=== PATIENT | male | born 2000 | race African-American/Black ===

== ENCOUNTER 2019-06-24 20:49 | Emergency (ER) | payer OTHER ==
[2019-06-24] MEDS ORDERED: Acetaminophen TAB* 325 MG PO ONE (21:09)
[2019-06-24 21:19] LABS: Influenza B Molecular POSITIVE (Negative)
--- NOTE | 2019-06-24 21:25 | UC ---
FLU HPI - HPI Summary HPI Summary: 18-year-old male presenting with father for sore throat, nasal congestion, dry cough, body aches 2 days. Patient notes fever began today. Also notes decreased appetite. Patient states concern for the flu. Denies shortness of breath and difficulty breathing. Denies cough. Denies nausea or vomiting. Denies taking anything for fever or pain relief. - History of Current Complaint Stated Complaint: FLU LIKE SYMPTOMS Hx Obtained From: Patient Pain Intensity: 0 - Allergy/Home Medications Allergies/Adverse Reactions: Allergies Allergy/AdvReac Type Severity Reaction Status Date / Time No Known Allergies Allergy Verified 06/24/19 21:00 PMH/Surg Hx/FS Hx/Imm Hx Previously Healthy: Yes - Surgical History Surgical History: None - Family History Known Family History: Positive: Non-Contributory - Social History Alcohol Use: None Substance Use Type: None Smoking Status (MU): Never Smoked Tobacco Review of Systems All Other Systems Reviewed And Are Negative: Yes Constitutional: Positive: Fever, Chills, Fatigue ENT: Positive: Sore Throat, Sinus Congestion Respiratory: Positive: Cough. Negative: Shortness Of Breath Cardiovascular: Positive: Negative Gastrointestinal: Positive: Negative Musculoskeletal: Positive: Myalgia Neurological: Positive: Negative Physical Exam - Summary Physical Exam Summary: Vital Signs Reviewed: Yes A+Ox3, no distress, ill-appearing Eyes: Conjunctiva Clear ENT: Hearing grossly normal, TM x 2 clear, moist, uvula midline, no exudate, + pharyngeal erythema Neck: Positive: Supple Respiratory: Positive: No respiratory distress, No accessory muscle use + CTA throughout no w/r Cardiovascular: RRR nl s1, s2 no m/r Musculoskeletal Exam: GONZALEZ x 4 without difficulty Neurological: Positive: Alert Psychological: Positive: age appropriate behavior Skin: Positive: no rash, no ecchymosis Vital Signs: Initial Vital Signs Temp 103.5 F 06/24/19 21:01 Pulse 95 06/24/19 21:01 Resp 18 06/24/19 21:01 BP 138/94 06/24/19 21:01 Pulse Ox 100 06/24/19 21:01 Lab Results 06/24/19 Range/Units 21:16 Influenza B (Rapid) Positive A (Negative) Flu Course/Dx - Course Course Of Treatment: Positive rapid flu B. Educated patient for about influenza and Tamiflu. When given the option, the degree that it would be beneficial to begin Tamiflu treatment. I provided patient with first dose here and sent prescription for the rest. Patient also received Tylenol and ibuprofen for fever relief while here. Instructed to go to ED with any new or worsening symptoms. Patient and father voiced understanding and agreed with treatment plan. - Differential Dx/Diagnosis Provider Diagnosis: Influenza B Discharge ED - Sign-Out/Discharge Documenting (check all that apply): Patient Departure All imaging exams completed and their final reports reviewed: No Studies - Discharge Plan Condition: Stable Disposition: HOME Prescriptions: Acetaminophen TAB* [Tylenol TAB*] 325 mg PO Q6H PRN #50 tab PRN Reason: Pain-Moderate/Temp >/= 100.4 Ibuprofen TAB* [Advil TAB*] 200 mg PO Q6H PRN #50 tab PRN Reason: Pain-Moderate/Temp >/= 100.4 Oseltamivir CAP* [Tamiflu CAP*] 75 mg PO BID #9 cap Patient Education Materials: Influenza (ED) Forms: *School Release Referrals: [facility] [Outside] - If Needed Additional Instructions: As discussed, you tested positive for influenza today. Take tamiflu as prescribed. You received the first dose tonight and the rest has been sent to your pharmacy for pickup. You may continue with ibuprofen and Tylenol as directed for fever and pain relief. Get plenty of rest and increase your fluid intake. Follow up with your primary care provider or the [facility] if symptoms do not resolve within 5-7 days. Go to the emergency room with any new or worsening symptoms. - Billing Disposition and Condition Condition: STABLE Disposition: Home
[2019-06-24] MEDS ORDERED: Oseltamivir CAP* 75 MG CAP PO ONE (21:34)
[2019-06-24] MEDS ORDERED: Ibuprofen TAB* 600 MG PO ONE (21:34)
== END 2019-06-24 21:45 | disposition home or self-care (01) ==
LOC: UCEAST 20:49
DX: J10.1 Influenza due to other identified influenza virus with other respiratory manifestations (principal)
CPT/HCPCS: 99202; A9270-GY; G0463